=== PATIENT | female | born 1975 | race Caucasian/White ===

== ENCOUNTER 2022-01-20 08:00 | Outpatient (CLI) | payer BC, SELFPAY ==
[2022-01-20 18:59] LABS: Basophils Absolute Auto 0.1 K/mm3 (0.0-0.1); Basophils Percent Auto 1.3 % (0.2-1.2); Eosinophils Absolute Auto 0.1 K/mm3 (0-0.3); Eosinophils Percent Auto 2.4 % (0-4.4); Hematocrit 39.5 % (37.0-47.0); Hemoglobin 12.5 g/dL (12.0-15.0); Mean Corpuscular HGB Conc 31.6 g/dl (32-36); Mean Corpuscular Hemoglobin 31.1 pg (26-34); Mean Corpuscular Volume 98.3 fl (80-100); Mean Platelet Volume 11.8 fl (7.4-10.4); Monocytes Absolute Auto 0.3 K/mm3 (0.1-0.6); Monocytes Percent Auto 6.2 % (2.6-8.5); Neutrophils Absolute Auto 3.1 K/mm3 (1.3-6.7); Neutrophils Percent Auto 57.1 % (45.5-73.1); Platelet Count Result 201 k/mm3 (150-375); Red Blood Count 4.02 M/mm3 (4.2-5.4); Red Cell Distribution Width 12.2 % (11.5-14.5); White Blood Count 5.5 K/mm3 (4.5-10.0)
[2022-01-20 19:01] LABS: Hemoglobin A1C 5.3 % (<5.7)
[2022-01-20 19:14] LABS: Alanine Aminotransferase 22 U/L (6-35); Albumin Level 4.4 g/dL (3.5-5.1); Alkaline Phosphatase 55 U/L (38-126); Anion Gap 11 mmol/L (8-16); Aspartate Amino Transferase 24 U/L (14-36); Bilirubin,Total 1.1 mg/dL (0.2-1.3); Blood Urea Nitrogen 16 mg/dL (7-17); Calcium 8.9 mg/dL (8.4-10.2); Carbon Dioxide 26 mmol/L (22-30); Chloride 102 mmol/L (98-107); Cholesterol 173 mg/dL (0-200); Estimated Glomerular Filt Rate > 60; Glucose 88 mg/dL (65-110); HDL Direct 55 mg/dL; Potassium 4.2 mmol/L (3.4-5.0); Sodium 139 mmol/L (137-145); Triglycerides 51 mg/dL (<150)
[2022-01-20 19:18] LABS: Free T4 Free Thyroxine 1.05 ng/mL (0.78-2.19); Vitamin D 25 Hydroxy 26.1 ng/mL
[2022-01-20 19:25] LABS: LDL Cholesterol Direct 89 mg/dL
== END 2022-01-20 08:01 | disposition home or self-care (01) ==
PROVIDERS: PCP Family Medicine; Visit Provider Family Medicine
DX: R53.83 Other fatigue (principal); E55.9 Vitamin D deficiency, unspecified; Z13.220 Encounter for screening for lipoid disorders; R73.9 Hyperglycemia, unspecified
CPT/HCPCS: 36415; 80053; 80061; 82306; 83036; 84439; 84443; 85025

== ENCOUNTER → 2022-05-06 13:09 | Outpatient (CLI) | payer BC, SELFPAY ==
--- NOTE | ~2022-05-06 | XR_ITS ---
EXAM: XR cervical spine 4-5V DATE: 05/06/2022 13:23 HISTORY: Chronic neck pain . COMPARISON: None available. FINDINGS: Craniocervical association and atlantoaxial joint are aligned. No prevertebral soft tissue swelling. Vertebral bodies are aligned. Vertebral body heights are maintained. Normal disc spaces. N ormal facets and posterior elements. IMPRESSION: Normal cervical spine radiograph findings. Reviewed, dictated and finalized at location K. K PINNER
== END ==
PROVIDERS: PCP Family Medicine; Visit Provider Chiropractor
DX: M54.2 Cervicalgia (principal)
CPT/HCPCS: 72050

== ENCOUNTER → 2022-09-17 15:23 | Outpatient (CLI) | payer BC, SELFPAY ==
--- NOTE | ~2022-09-17 | XR_ITS ---
EXAM: XR ankle LT min 3V DATE: 09/17/2022 15:40 HISTORY: Lateral Lt ankle pain with dorsiflexion; no injury . COMPARISON: None available. FINDINGS: Normal mineralization. No fracture or dislocation. Bone island in the talus. No suspicious lytic or blastic lesion. Joint spaces are maintained. No erosion or periosteal change. Soft tissues within normal limits. IMPRESSION: Unremarkable left ankle radiograph findings. Reviewed, dictated and finalized at location K.
--- NOTE | ~2022-09-17 | XR_ITS ---
EXAM: XR hip RT min 2V DATE: 09/17/2022 15:41 HISTORY: chronic Pain in right hip . COMPARISON: None available. FINDINGS: Normal mineralization. No fracture or dislocation. No lytic or blastic lesion. Mild degene rative change in the right SI joint and pubic symphysis. Right hip is normal. No erosion or periostea l change. Soft tissues within normal limits. 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 Mild osteitis pubis. Reviewed, dictated and finalized at location K.
== END ==
PROVIDERS: PCP Family Medicine; Visit Provider Family Medicine
DX: M25.572 Pain in left ankle and joints of left foot (principal); G89.29 Other chronic pain; M16.11 Unilateral primary osteoarthritis, right hip
CPT/HCPCS: 73502; 73610

== ENCOUNTER → 2022-09-18 15:27 | Outpatient (CLI) | payer BC, SELFPAY ==
--- NOTE | ~2022-09-18 | MM_ITS ---
EXAMINATION: MM screening bushra BI w martha HISTORY: Screening mammogram TECHNIQUE: Craniocaudal and mediolateral oblique 3-D tomosynthesis images were obtained and synthetic 2-D images were generated. CAD analysis was submitted and interpreted. COMPARISON: No prior mammogram is available for comparison at this institution. BREAST PARENCHYMAL COMPOSITION:The breasts are heterogeneously dense, which may obscure small masses. FINDINGS: No suspicious mass, calcification, or architectural distortion are identified in either lola ast to suggest malignancy. IMPRESSION: No mammographic evidence of malignancy. Recommend routine screening mammography in one year. BI-RADS Category 1: Negative Reviewed, dictated and finalized at location .
== END ==
PROVIDERS: PCP Obstetrics & Gynecology; Visit Provider Obstetrics & Gynecology
DX: Z12.31 Encounter for screening mammogram for malignant neoplasm of breast (principal)
CPT/HCPCS: 77063; 77067

== ENCOUNTER 2023-01-31 07:52 | Outpatient (CLI) | payer BC, SELFPAY ==
[2023-01-31 08:14] LABS: Basophils Absolute Auto 0.1 K/mm3 (0.0-0.1); Basophils Percent Auto 1.4 % (0.2-1.2); Eosinophils Absolute Auto 0.1 K/mm3 (0-0.3); Eosinophils Percent Auto 1.2 % (0-4.4); Hematocrit 41.2 % (37.0-47.0); Hemoglobin 13.4 g/dL (12.0-15.0); Immature Granulocyte Absolute 0.01 K/mm3 (0.00-0.031); Immature Granulocyte Percent A 0.2 % (0-0.5); Lymphocytes Percent Auto 23.6 % (18.3-44.2); Mean Corpuscular HGB Conc 32.5 g/dl (32-36); Mean Corpuscular Hemoglobin 30.9 pg (26-34); Mean Corpuscular Volume 94.9 fl (80-100); Mean Platelet Volume 10.2 fl (7.4-10.4); Monocytes Absolute Auto 0.3 K/mm3 (0.1-0.6); Monocytes Percent Auto 6.3 % (2.6-8.5); Neutrophils Absolute Auto 3.4 K/mm3 (1.3-6.7); Neutrophils Percent Auto 67.3 % (45.5-73.1); Platelet Count Result 251 k/mm3 (150-375); Red Blood Count 4.34 M/mm3 (4.2-5.4); Red Cell Distribution Width 11.9 % (11.5-14.5); White Blood Count 5.1 K/mm3 (4.5-10.0)
[2023-01-31 08:25] LABS: Alanine Aminotransferase 16 U/L (6-35); Albumin Level 4.7 g/dL (3.5-5.1); Alkaline Phosphatase 71 U/L (38-126); Anion Gap 11 mmol/L (8-16); Aspartate Amino Transferase 22 U/L (14-36); Bilirubin,Total 1.2 mg/dL (0.2-1.3); Blood Urea Nitrogen 16 mg/dL (7-17); Calcium 9.4 mg/dL (8.4-10.2); Carbon Dioxide 28 mmol/L (22-30); Chloride 102 mmol/L (98-107); Cholesterol 216 mg/dL (0-200); Estimated Glomerular Filt Rate > 60; Glucose 88 mg/dL (65-110); HDL Direct 66 mg/dL; Potassium 4.1 mmol/L (3.4-5.0); Sodium 141 mmol/L (137-145); Triglycerides 84 mg/dL (<150)
[2023-01-31 08:36] LABS: LDL Cholesterol Direct 108 mg/dL
[2023-01-31 08:57] LABS: Free T4 Free Thyroxine 1.32 ng/mL (0.78-2.19); Vitamin D 25 Hydroxy 37.6 ng/mL
[2023-02-03 20:29] LABS: FSH 24.5 mIU/mL (***); LH 17.1 mIU/mL (***)
[2023-02-05 11:56] LABS: Estrogen 71 pg/mL
== END 2023-01-31 07:53 | disposition home or self-care (01) ==
PROVIDERS: PCP Obstetrics & Gynecology; Visit Provider Family Medicine
DX: R53.83 Other fatigue (principal); E55.9 Vitamin D deficiency, unspecified; N95.1 Menopausal and female climacteric states; Z13.220 Encounter for screening for lipoid disorders
CPT/HCPCS: 36415; 80053; 80061; 82306; 82672; 83001; 83002; 84439; 84443; 85025

== ENCOUNTER 2023-06-26 07:10 | Emergency (ER) | payer BC, SELFPAY ==
[2023-06-26 08:51] VITALS: O2SAT 100
[2023-06-26 09:00] VITALS: BP 101/69; PULSE 74; RESP 20
[2023-06-26 09:01] VITALS: PULSE 71; RESP 12; O2SAT 100
[2023-06-26 09:02] LABS: Appearance Urine Clear (Clear); Bacteria Urine 1+ /hpf; Bilirubin Urine Negative (Negative); Blood Urine Negative (Negative); Color Urine Dark Yellow (Yellow); Glucose Urine UA Negative (Negative); Ketones Urine Trace mg/dL (Negative); Leukocyte Esterase Ur Negative LEU/UL (Negative); Need Manual Microscopic Reviewed; Nitrate Urine Negative (Negative); Protein Urine Trace mg/dL (Negative); Specific Grav Ur 1.024 (1.001-1.035); Squamous Epithelial Cell Urine Few /hpf (Few); WBC Urine 0-5 /hpf (0-3); pH Urine 5.5 (5.0-9.0)
[2023-06-26 09:04] LABS: Add Urine Microscopic? YES
--- NOTE | 2023-06-26 09:10 | ED.BACK ---
HPI - Back Pain/Injury General Chief Complaint: Back Pain/Injury Stated Complaint: back pain Time Seen by Provider: 06/26/23 08:59 Source: patient Mode of arrival: ambulatory Limitations: no limitations History of Present Illness HPI Narrative: Janel is a 47-year-old female patient presenting to the clinic today with complaints of left-sided low back pain. She reports the pain is worse upon movement. Rates her pain currently a 5/10. Denies any urinary symptoms. States that the back pain started last night. No known injury. Reports that when she bent forward the pain was very sharp and caused her to feel nauseous and dizzy. Pain does not radiate. No history of kidney stones in the past. Denies any saddle anesthesia or loss of bowel or bladder. Related Data Allergies Allergy/AdvReac Type Severity Reaction Status Date / Time Sulfa (Sulfonamide Allergy Mild rash Verified 06/26/23 08:32 Antibiotics) Review of Systems Review of Systems: Pertinent positives per HPI. Patient denies any fever, chills, rash, headache, visual changes, dizziness, cough, runny nose, sore throat, shortness of breath, chest pain, palpitations, nausea, vomiting, diarrhea, constipation, abdominal pain, or any urinary issues. [facility] Past Medical History Medical History Miscarriage Surgical History Surgical History H/O tubal ligation 2007 History of dilatation and curettage History of wisdom tooth extraction Family History Family History Grandparent Cancer Alcohol abuse Hypertension Heart disease Cerebrovascular accident Depression Mother Cancer Son Depression Other Diabetes mellitus Social History Social History Smoking status: Never smoker Second hand tobacco smoke exposure: No Alcohol intake: never Substance use: never Substance use type: does not use Lack of Transportation: No Lack of Food: Never True Current Housing: I Have Housing Concerned About Future Housing: No Difficulty Paying Gas/Electric Bills: No Difficulty Paying for Meds: No Currently Unemployed: No Education: Bachelor's Degree Difficulty w/ Childcare or Family Care: No Living arrangements: with family Occupation/Education: occupation Spiritual care concerns: No Comments At the time of my signature, I reviewed and agree with the nursing past medical, surgical, social, and family history. There is no relevant family history pertinent to the patient complaint. Exam Narrative: General: Well-developed, well nourished, in no apparent distress Head: Normocephalic, atraumatic. Cardio: Regular rate and rhythm, s1 and s2 normal, no murmur appreciated. Resp: Clear to auscultation bilaterally, no rhonchi, rales, wheezing or rubs. Musculoskeletal: No deformity,tender to palpation over the mid lower and left lower back/paraspinous musculature, pain to the left lower back with flexion of the spine, grossly normal range of motion, patellar reflexes 2+, negative foot drop, muscle strength strong and equal, peripheral pulse strong, no edema, no cyanosis, normal gait and station Course Course Emergency Course: Portions of this record may have been created with voice recognition software. Vital Signs Vital signs: Vital Signs Pulse Oximetry 100 06/26/23 08:51 Pulse Rate 76 06/26/23 09:16 Respiratory Rate 18 06/26/23 09:16 Blood Pressure 114/79 06/26/23 09:15 Pulse Oximetry 100 06/26/23 09:01 Vital signs reviewed MDM - Back Pain/Injury MDM Narrative Medical decision making narrative: At the time of visit patient is resting comfortably on the exam table. Patient appears to be nontoxic. Labs: UA shows trace of ketones, 6-10 red blood cells and 1+ bact
[2023-06-26 09:15] VITALS: BP 114/79; PULSE 74; RESP 13
[2023-06-26 09:16] VITALS: PULSE 76; RESP 18
[2023-06-26] MEDS: KETOROLAC (*BKC) 60 MG/2 ML VIAL IM (09:22)
== END 2023-06-26 09:38 | disposition home or self-care (01) ==
LOC: ANHED 09:27
PROVIDERS: Emergency Medicine; Emergency Provider Nurse Practitioner Family; PCP Family Medicine
DX: S39.012A Strain of muscle, fascia and tendon of lower back, initial encounter (principal)
CPT/HCPCS: 81001; 96372; 99283; J1885

== ENCOUNTER 2023-07-03 11:35 | Outpatient (CLI) | payer BC, SELFPAY ==
--- NOTE | ~2023-07-03 | XR_ITS ---
XR lumbar spine 2-3V DATE: 07/03/2023 11:46 INDICATION: Chronic low back pain with pain and tingling radiating to the lower extremities TECHNIQUE: AP, lateral, coned lateral lumbosacral views COMPARISON: None FINDINGS: Normal alignment of the lumbar spine. No fracture or bone destruction. The included lower t horacic and lumbar pedicles are intact. There is suggestion of mild loss of interspace height at L4-5 and L5-S1. The sacroiliac joints are intact. IMPRESSION: Mild loss of interspace height at L4-5 and L5-S1 Reviewed, dictated and finalized at location A.
== END 2023-07-03 11:36 ==
PROVIDERS: PCP Family Medicine; Visit Provider Clinical Nurse Specialist
DX: M54.50 Low back pain, unspecified (principal); R20.2 Paresthesia of skin
CPT/HCPCS: 72100

== ENCOUNTER 2023-07-10 12:59 | Outpatient (CLI) | payer BC, SELFPAY ==
--- NOTE | ~2023-07-10 | MR_ITS ---
EXAMINATION: MR lumbar spine wo con DATE: 07/10/2023 13:38 INDICATION: Radiculopathy, lumbar region. Low back pain. TECHNIQUE: Magnetic resonance imaging (MRI) of the lumbar spine was performed without intravenous con trast. Sequences included sagittal T2-weighted FSE, sagittal T2-weighted FS FSE, sagittal T1-weighted FSE, and axial T2-weighted FSE. COMPARISON: Lumbar spine radiographs 07/03/23 FINDINGS: Bone alignment is normal. Vertebral body heights are normal. Intervertebral disc heights ar e normal. The distal spinal cord signal intensity is normal. The conus medullaris is at L2. The follo wing disc levels are specifically discussed: L1-L2: The disc does not extend beyond the endplate margin. There is mild bilateral facet joint osteo arthritis. There is no neural foraminal stenosis. There is no central canal stenosis. L2-L3: The disc does not extend beyond the endplate margin. There is mild bilateral facet joint osteo arthritis. There is no neural foraminal stenosis. There is no central canal stenosis. L3-L4: The disc is bulging and has an annular fissure. There is mild bilateral facet joint osteoarthr itis. There is mild bilateral neural foraminal stenosis. There is mild central canal stenosis. L4-L5: The disc is bulging. There is moderate bilateral facet joint osteoarthritis. There is mild dakota ateral neural foraminal stenosis. There is mild central canal stenosis. L5-S1: The disc is bulging and has an annular fissure. There is severe right and moderate left facet joint osteoarthritis. There is mild bilateral neural foraminal stenosis. There is mild central canal stenosis. IMPRESSION: 1. Mild lumbar spondylosis. Reviewed, dictated and finalized at location E. IMPRESSION: 1. Mild lumbar spondylosis.
== END 2023-07-10 13:00 ==
LOC: GOSHIMG 13:00
PROVIDERS: PCP Family Medicine; Visit Provider Clinical Nurse Specialist
DX: M47.26 Other spondylosis with radiculopathy, lumbar region (principal)
CPT/HCPCS: 72148

== ENCOUNTER 2024-02-20 08:18 | Outpatient (CLI) | payer BC, SELFPAY ==
[2024-02-20 08:46] LABS: Basophils Absolute Auto 0.1 K/mm3 (0.0-0.1); Basophils Percent Auto 0.7 % (0.2-1.2); Eosinophils Absolute Auto 0.2 K/mm3 (0-0.3); Hematocrit 37.5 % (37.0-47.0); Hemoglobin 12.3 g/dL (12.0-15.0); Immature Granulocyte Absolute 0.03 K/mm3 (0.00-0.031); Immature Granulocyte Percent A 0.4 % (0-0.5); Lymphocytes Absolute Auto 2.26 K/mm3 (0.9-3.2); Lymphocytes Percent Auto 30.3 % (18.3-44.2); Mean Corpuscular HGB Conc 32.8 g/dl (32-36); Mean Corpuscular Hemoglobin 31.5 pg (26-34); Mean Corpuscular Volume 95.9 fl (80-100); Mean Platelet Volume 10.1 fl (7.4-10.4); Monocytes Absolute Auto 0.5 K/mm3 (0.1-0.6); Neutrophils Absolute Auto 4.5 K/mm3 (1.3-6.7); Neutrophils Percent Auto 60.6 % (45.5-73.1); Platelet Count Result 254 k/mm3 (150-375); Red Blood Count 3.91 M/mm3 (4.2-5.4); Red Cell Distribution Width 12.3 % (11.5-14.5); White Blood Count 7.5 K/mm3 (4.5-10.0)
[2024-02-20 08:55] LABS: Alanine Aminotransferase 38 U/L (6-35); Albumin Level 4.2 g/dL (3.5-5.1); Alkaline Phosphatase 64 U/L (38-126); Anion Gap 3 mmol/L (4-12); Aspartate Amino Transferase 40 U/L (14-36); Bilirubin,Total 0.6 mg/dL (0.2-1.3); Blood Urea Nitrogen 21 mg/dL (7-17); Calcium 9.1 mg/dL (8.4-10.2); Carbon Dioxide 31 mmol/L (22-30); Chloride 104 mmol/L (98-107); Cholesterol 187 mg/dL (0-200); Estimated Glomerular Filt Rate > 60; Glucose 87 mg/dL (65-110); HDL Direct 56 mg/dL; Sodium 138 mmol/L (137-145); Triglycerides 93 mg/dL (<150)
[2024-02-20 09:06] LABS: LDL Cholesterol Direct 84 mg/dL
[2024-02-20 10:01] LABS: Free T4 Free Thyroxine 0.93 ng/mL (0.78-2.19); Vitamin D 25 Hydroxy 27.6 ng/mL
== END 2024-02-20 08:19 | disposition home or self-care (01) ==
LOC: ANHLAB 08:19
PROVIDERS: PCP Family Medicine; Visit Provider Family Medicine
DX: R53.83 Other fatigue (principal); E55.9 Vitamin D deficiency, unspecified; N92.6 Irregular menstruation, unspecified; E78.5 Hyperlipidemia, unspecified
CPT/HCPCS: 36415; 80053; 80061; 82306; 84439; 84443; 85025

== ENCOUNTER 2024-06-11 08:29 | Outpatient (CLI) | payer BC, SELFPAY ==
--- OUTSIDE RECORDS SUMMARY | 2024-06-11 08:32 | XMS_ITS | Encounter Summary ---
Author Organization [facility] Address [address] [place] [address] Care Team Providers Care Gps Navigation Installer Name Role Phone Yvonne Peralta Primary Care Provider Unav Mc Stone MD Unavailable [phone] Encounter Details Date Type Department Care Team (Late st Contact Info) Description 04/20/2020 Edgewaret Message Enc [facility] Medical [address] [address] Yvonne Peralta FNP-BC RE: Follow Up/Update Social History Tobacco Use Types Packs/Day Years Used Date Smoking Tobacco: Never Smokeless Tobacco: Never Alcohol Use Standard Drinks/Week Comments No 0 (1 standard drink = 0.6 oz pur e alcohol) AUDIT-C Answer Date Recorded Frequency of Alcohol Consumption Never 03/22/2019 Average Number of Drinks Not on file 019 Frequency of Binge Drinking Not on file 02/22 Comments Unknown Sex and Gender Information Value Date Recorded Sex Assigned at Not on file Legal Sex Female 7:45 PM CDT Gender Identity Not on file Sexual Orientation Not on file documented as of this encounter Progress Notes * SUDEEP Castro - 04/20/2020 2:29 PM CSTFrom: Janel Rhoades To: Yvonne Peralta Sent: 04/20/2020 12:33 PM STRETCHER LEVELER OPERATOR Subject: Follow Up/Update Regarding the hot tub rash, my neck/back is starting up again now that the steroids are done. Not near as bad but it???s bumpy. The topical never came through. Armandos says it???s something with the insurance. Will you please look into that for me? Thank you! TCHER LEVELER OPERATOR documented in this encounter Plan of Treatment Not on file documented as of this encounter Visit Diagnoses Diagnosis Dermatitis Contact dermatitis and other eczema, due to unspecified cause documented in this encounter Additional Health Concerns Infection Onset Date Last Indicated Resolved Time COVID-19 Rule Out 04/27/2020 04/27/2020 04/28/2020 12:00 PM STRETCHER LEVELER OPERATOR documented as of this encounter Care Teams Gps Navigation Installer Relationship Specialty Start Date End Date Yvonne Peralta FNP-BC PCP - General NURSE PRACTITIONER 03/01/19 Mc Toscano MD [address] [address] Referring Physician OBHOLLYN 03/22/19 documented as of this encounter
--- OUTSIDE RECORDS SUMMARY | 2024-06-11 08:32 | XMS_ITS | Encounter Summary ---
Author Organization [facility] Address [facility] [place] [address] Care Team Providers Care Paste Up Artist Apprentice Name Role Phone Yvonne Peralta [facility] Primary Care Provider Unav ailable Mc Toscano MD Unavailable Encounter Details Date Type Department Care Team (Late st Contact Info) Description 02/18/2023 Provender Message Enc [facility] Medical Group Family Medicine - [place] [address] [place] [address] [facility] Provider Screening Social History Tobacco Use Types Packs/Day Years [...] on file documented as of this encounter Plan of Treatment Not on file documented as of this encounter Visit Diagnoses Not on filedocumented in this encounter Care Teams Paste Up Artist Apprentice Relationship Specialty Start Date End Date Yvonne Peralta FNP-BC PCP - General NURSE PRACTITIONER 03/01/19 Mc Toscano MD [address] [facility] [address] [place] [address] Referring Physician OBJOSE R 03/22/19 documented as of this encounter
--- OUTSIDE RECORDS SUMMARY | 2024-06-11 08:32 | XMS_ITS | Encounter Summary ---
Author Organization [facility] Address [facility] [place] [address] Care Team Providers Care Loom Control Chain Builder Name Role Phone Yvonne Peralta Primary Care Provider Unav Mc Stone MD Unavailable [phone] Encounter Details Date Type Department Care Team (Late st Contact Info) Description 04/10/2020 Mosa Records Message Enc [facility] Medical Group Family Medicine [address] [address] Yvonne Peralta FNP-BC Other Social History Tobacco Use Types Packs/Day Years [...] Diagnoses Not on filedocumented in this encounter Additional Health Concerns Infection Onset Date Last Indicated Resolved Time COVID-19 Rule Out 04/27/2020 04/27/2020 04/28/2020 12:00 PM ADVERTISING LAYOUT WORKER documented as of this encounter Care Teams Loom Control Chain Builder Relationship Specialty Start Date End Date Yvonne Peralta FNP-BC PCP - General NURSE PRACTITIONER 03/01/19 Mc Toscano MD [address] [id number] Referring Physician TG 03/22/19 documented as of this encounter
--- OUTSIDE RECORDS SUMMARY | 2024-06-11 08:32 | XMS_ITS | Clinical Summary ---
Author Organization [facility] Address [address] [place] [address] Care Team Providers Care Code Number Stamper Name Role Phone MaryuriYvonne stewart [facility] Primary Care Provider Unav ailable Mc Toscano MD Unavailable [phone] Allergies Active Allergy Reactions Criticality Noted Date Comments Sulfa Antibiotics Rash,Swelling Medium 03/01/2012 Medications No known medications Active Problems Problem Noted Date Diagnosed Date Hyperlipidemia 01/20/2014 Depression 03/01/2012 Resolved Problems Problem Noted Date Diagnosed Date Resolved Date Hip injury 03/06/2016 03/22/2019 Greater trochanteric bursitis, right 02/29/2016 03/22/2019 Knee pain, right 02/29/2016 03/22/2019 Shoulder pain, right 02/29/2016 019 Diarrhea 01/20/2014 03/22/2019 Menorrhagia 02/28/2013 03/22/2019 Acute otitis media 09/27/2012 9 Sore throat 2012 03/22/2019 Encounter for preventive health examination 03/01/2012 12/02/2019 Immunizations Name Administration Dates Next Due PFIZER COVID-19 (ORIGINAL FO RMULATION, PURPLE CAP) mRNA, LNP-S, PF, 30 MCG/0.3 ML DOSE 06/03/2020 Family History Medical History Relation Comments Depression Father Cancer Mother uterine Cancer Sister cervical Relation Status Comments Father Alive Mother Alive Sister Alive Social History Tobacco Use Types Packs/Day Years [...] on file Sexual Orientation Not on file Last Filed Vital Signs Vital Sign Reading Time Taken Comments Blood Pressure 102/60 03/22/2019 7:54 AM OBIEE OBIA SOLUTION ARCHITECT Pulse 73 03/22/2019 7:54 AM OBIEE OBIA SOLUTION ARCHITECT Temperature 36.9 C (98.4 F) 03/22/2019 7:54 AM OBIEE OBIA SOLUTION ARCHITECT Respiratory Rate - - Oxygen Saturation 95% 03/22/2019 7:54 AM OBIEE OBIA SOLUTION ARCHITECT Inhaled Oxygen Concentration - - Weight 55.3 kg (122 lb) 03/22/2019 7:54 AM OBIEE OBIA SOLUTION ARCHITECT Height 169 cm (5' 6.54 ) 03/22/2019 7:54 AM OBIEE OBIA SOLUTION ARCHITECT Body Mass Index 19.38 03/22/2019 7:54 AM OBIEE OBIA SOLUTION ARCHITECT Plan of Treatment Health Maintenance Due Date Last Done Comments Cervical Cancer Screening Pa p Smear (Age 30 to 64) Every 3 Years 1977 Colorectal Cancer Screening Colonoscopy (10 Years) 1977 PHQ-2 (Physician [place]) 1989 Hepatitis C 09/22/1995 DTaP, Tdap and Td Vaccines ( 1 - Tdap) 1996 Hepatitis B Vaccines (1 of 3 - 19+ 3-dose series) 1996 Cervical Cancer Screening Pa p with HPV Testing (Age 30 to 64) Every 5 Years 09/22/2007 Cervical Cancer Screening with HPV 09/22/2007 Mammogram Screening 2017 Annual Physical 03/22/2020 03/22/2019 COVID-19 Vaccine (2 - 2023-2 5 season) 2023 06/03/2020 Influenza Adult (#1) 2023 PHQ-2 (Physician [place]) 03/23/2024 Meningococcal B Vaccine Aged Out No l onger eligible based on patient's age to complete this topic Meningococcal Vaccine Aged Out No samir francisco eligible based on patient's age to complete this topic Pneumococcal Vaccine: Pediat rics (0 to 5 Years) and At-Risk Patients (6 to 64 Years) Aged Out No longer eligi ble based on patient's age to complete this topic RSV Immunizations Under 20 Months Aged Out No longer eligible based on patient's age to complete this topic Insurance [facility] Care Teams Code Number Stamper Relationship Specialty Start Date End Date Yvonne Peralta FNP- PCP - General NURSE PRACTITIONER 03/01/19 Mc Toscano MD [address] [place] [place] [address] [place] [address] Referring Physician JENNIEN 03/22/19
--- OUTSIDE RECORDS SUMMARY | 2024-06-11 08:32 | XMS_ITS | Encounter Summary ---
Author Organization [facility] Address [address] [place] [address] Care Team Providers Care Baccarat Dealer Name Role Phone [facility] SERVICES Primary Care Provider Unav ailable Mc Toscano MD Unavailable [phone] Encounter Details Date Type Department Care Team (Late st Contact Info) Description 06/06/2020 PlayCrafter Message Enc [facility] Medical [address] [address] Yvonne Peralta FNP-BC RE: Referral Request Social History Tobacco Use Types Packs/Day Years [...] on filedocumented in this encounter Care Teams Baccarat Dealer Relationship Specialty Start Date End Date Yvonne Peralta FNP-BC PCP - General NURSE PRACTITIONER 03/01/19 Mc Toscano MD [address] [address] Referring Physician TG 03/22/19 documented as of this encounter
--- OUTSIDE RECORDS SUMMARY | 2024-06-11 08:32 | XMS_ITS | Encounter Summary ---
Author Organization [facility] Address [address] [place] [address] Care Team Providers Care Sewing Machine Operator Name Role Phone Yvonne Peralta Primary Care Provider UnaMc Ramirez MD Unavailable [phone] Encounter Details Date Type Department Care Team (Late st Contact Info) Description 04/10/2020 Gradwell Message Enc [facility] Medical [facility] Medicine [address] [address] Yvonne Peralta FNP-BC RE: Follow [...] Rule Out 04/27/2020 04/27/2020 04/28/2020 12:00 PM PANELBOARD TANK PUMPER documented as of this encounter Care Teams Sewing Machine Operator Relationship Specialty Start Date End Date Yvonne Peralta FNP-BC PCP - General NURSE PRACTITIONER 03/01/19 Mc Toscano MD [address] [address] Referring Physician TG 03/22/19 documented as of this encounter
[2024-06-11 08:57] LABS: Alanine Aminotransferase 12 U/L (6-35); Albumin Level 4.1 g/dL (3.5-5.1); Alkaline Phosphatase 53 U/L (38-126); Aspartate Amino Transferase 25 U/L (14-36); Bilirubin,Total 0.8 mg/dL (0.2-1.3)
== END 2024-06-11 08:30 | disposition home or self-care (01) ==
LOC: ANHLAB 08:30
PROVIDERS: PCP Family Medicine; Visit Provider Family Medicine
DX: R74.8 Abnormal levels of other serum enzymes (principal)
CPT/HCPCS: 36415; 80076

== ENCOUNTER 2024-10-05 08:59 | Outpatient (CLI) | payer BC, SELFPAY ==
--- NOTE | ~2024-10-05 | MM_ITS ---
EXAMINATION: MM screening bushra BI w martha HISTORY: Screening TECHNIQUE: Craniocaudal and mediolateral oblique 3-D tomosynthesis images were obtained and synthetic 2-D images were generated. CAD analysis was submitted and interpreted. COMPARISON: 09/18/2022 BREAST PARENCHYMAL COMPOSITION: Dense: The breasts are heterogeneously dense, which may obscure small masses FINDINGS: There is no evidence of suspicious mass, calcification, or architectural distortion to sugg est malignancy in either breast. There has been no suspicious interval change. IMPRESSION: 1. No mammographic evidence of malignancy. 2. Recommend routine screening mammography in one year. BI-RADS Category 1: Negative Reviewed, dictated and finalized at location B.
--- OUTSIDE RECORDS SUMMARY | 2024-10-05 09:07 | XMS_ITS | Encounter Summary ---
Author Organization [facility] Address [facility] [place] [address] Care Team Providers Care Ecologist Technician Name Role Phone Yvonne Peralta Primary Care Provider Unav Mc Stone MD Unavailable [phone] Encounter Details Date Type Department Care Team (Late st Contact Info) Description 04/10/2020 GenVault Message Enc [facility] Medical Group Family Medicine [address] [address] Yvonne Peralta FNP-BC Other Social [...] Rule Out 04/27/2020 04/27/2020 04/28/2020 12:00 PM VENUE MANAGER documented as of this encounter Care Teams Ecologist Technician Relationship Specialty Start Date End Date Yvonne Peralta FNP-BC PCP - General NURSE PRACTITIONER 03/01/19 Mc Toscano MD [address] [id number] Referring Physician TG 03/22/19 documented as of this encounter
--- OUTSIDE RECORDS SUMMARY | 2024-10-05 09:08 | XMS_ITS | Encounter Summary ---
Author Organization [facility] Address [address] [place] [address] Care Team Providers Care Warp Dresser Name Role Phone [facility] Primary Care Provider Unav ailable Mc Toscano MD Unavailable [phone] Encounter Details Date Type Department Care Team (Late st Contact Info) Description 06/06/2020 CloudJay Message Enc [facility] Medical [address] [address] Yvonne Peralta FNP-BC RE: Referral [...] on filedocumented in this encounter Care Teams Warp Dresser Relationship Specialty Start Date End Date Yvonne Peralta FNP-BC PCP - General NURSE PRACTITIONER 03/01/19 Mc Toscano MD [address] [address] Referring Physician TG 03/22/19 documented as of this encounter
--- OUTSIDE RECORDS SUMMARY | 2024-10-05 09:08 | XMS_ITS | Encounter Summary ---
Author Organization [facility] Address [address] [place] [address] Care Team Providers Care Assistant Executive Housekeeper Name Role Phone Yvonne Peralta Primary Care Provider Unav Mc Stone MD Unavailable [phone] Encounter Details Date Type Department Care Team (Late st Contact Info) Description 04/20/2020 Dada Roomt Message Enc [facility] Medical [address] [address] Yvonne Peralta FNP-BC RE: Follow [...] To: Yvonne Peralta Sent: 04/20/2020 12:33 PM TRAVEL COUNSELOR Subject: Follow Up/Update Regarding the hot tub rash, my neck/back is starting up again now that the steroids are done. Not near as bad but it???s bumpy. The topical never came through. Armandos says it???s something with the insurance. Will you please look into that for me? Thank you! EL COUNSELOR documented in this encounter Plan of Treatment Not on file documented as of this encounter Visit Diagnoses Diagnosis Dermatitis Contact dermatitis and other eczema, due to unspecified cause documented in this encounter Additional Health Concerns Infection Onset Date Last Indicated Resolved Time COVID-19 Rule Out 04/27/2020 04/27/2020 04/28/2020 12:00 PM TRAVEL COUNSELOR documented as of this encounter Care Teams Assistant Executive Housekeeper Relationship Specialty Start Date End Date Yvonne Peralta FNP-BC PCP - General NURSE PRACTITIONER 03/01/19 Mc Toscano MD [address] [address] Referring Physician OBHOLLYN 03/22/19 documented as of this encounter
--- OUTSIDE RECORDS SUMMARY | 2024-10-05 09:08 | XMS_ITS | Encounter Summary ---
Author Organization [facility] Address [address] [place] [address] Care Team Providers Care Billing And Quality Technician Name Role Phone Yvonne Peralta Primary Care Provider UnaMc Ramirez MD Unavailable [phone] Encounter Details Date Type Department Care Team (Late st Contact Info) Description 04/10/2020 FTBpro Message Enc [facility] Medical [facility] Medicine [address] [address] Yvonne Peralta FNP-BC RE: Follow [...] Rule Out 04/27/2020 04/27/2020 04/28/2020 12:00 PM ASSESSMENT COUNSELOR documented as of this encounter Care Teams Billing And Quality Technician Relationship Specialty Start Date End Date Yvonne Peralta FNP-BC PCP - General NURSE PRACTITIONER 03/01/19 Mc Toscano MD [address] [address] Referring Physician TG 03/22/19 documented as of this encounter
--- OUTSIDE RECORDS SUMMARY | 2024-10-05 09:08 | XMS_ITS | Continuity of Care Document ---
Author Organization [facility], [facility] Address [address] [place] [phone] Phone Care Team Providers Care Spool Hauler Name Role Phone Hilary GIRALDO, Marie Unavailable Unavailable Allergies, Adverse Reactions, Alerts Substance Reaction Status Criticality Sulfa (Sulfonamide Antibiotics) Unknown Active No Information Medications Medication Instructions Dosage Effective Dates (start - stop) Status Comments NUVARING (unknown strength) Not Available - Active MULTIVITAMINS (unknown strength) Not Available - Active Advance Directives Directive Yes / No Effective Date File Name No Information Encounters Encounter Description Practice Location Reason(s) For Visit Diagnoses Date Provider Providers Copied on Encounter [facility], [facility], [address] [place] [address], [id number], tel:[phone] [facility] No Information Hilary Salazar. [address] [place] [address], [id number], . tel:[phone] Family History Family Member Type Diagnosis Age At Onset Mother Problem (finding) Arthritis Problem (finding) No family history of Re spiratory disease Problem (finding) No family history of Di abetes mellitus Problem (finding) No family history of Ca taracts Problem (finding) No family history of [place] Brother Problem (finding) asthma Problem (finding) No family history of [place] Payers Payer name Insurance type Covered alliance party ID Authoriza tion(s) No Information Social History Type Description Quantity Date Captured Comments Alcohol Use Details Unknown Caffeine Use Details Unknown Tobacco Use Status No Information Smoking Status No Information Sex Female Chief Complaint And Reason For Visit No Information Reason For Referral Reason For Referral No Information History Of Present Illness Encounter Date Complaint History Of Prese nt Illness No Information Functional Status Date Functional Assessmen t No Information Instructions Date Instruction Additional Infor mation No Information Assessments Type Assessment Date No Information Patient Care Teams Name Effective Dates (start - stop) Status Members No Information
--- OUTSIDE RECORDS SUMMARY | 2024-10-05 09:08 | XMS_ITS | Clinical Summary ---
Author Organization [facility] Address [address] [place] [address] Care Team Providers Care Home Builder Name Role Phone MaryuriYvonne stewart [facility] Primary Care Provider Unav ailable Mc Toscano MD Unavailable [phone] Allergies Active Allergy Reactions Criticality Noted Date [...] for preventive health examination 03/01/2012 12/02/2019 Immunizations Immunization Administration Dates Next Due PFIZER COVID-19 (ORIGINAL [...] Comments Blood Pressure 102/60 03/22/2019 7:54 AM COMBINATION OPERATOR Pulse 73 03/22/2019 7:54 AM COMBINATION OPERATOR Temperature 36.9 C (98.4 F) 03/22/2019 7:54 AM COMBINATION OPERATOR Respiratory Rate - - Oxygen Saturation 95% 03/22/2019 7:54 AM COMBINATION OPERATOR Inhaled Oxygen Concentration - - Weight 55.3 kg (122 lb) 03/22/2019 7:54 AM COMBINATION OPERATOR Height 169 cm (5' 6.54) 03/22/2019 7:54 AM COMBINATION OPERATOR Body Mass Index 19.38 03/22/2019 7:54 AM COMBINATION OPERATOR Plan of Treatment Health Maintenance Due Date Last Done Comments Cervical Cancer Screening Pa p Smear (Age 30 to 64) Every 3 Years 1977 Colorectal Cancer Screening Colonoscopy (10 Years) 1977 Hepatitis C 09/22/1995 DTaP, Tdap and Td Vaccines ( 1 - Tdap) 1996 Hepatitis B Vaccines (1 of 3 - 19+ 3-dose series) 1996 Cervical Cancer Screening Pa p with HPV Testing (Age 30 to 64) Every 5 Years 09/22/2007 Cervical Cancer Screening with HPV 09/22/2007 Mammogram Screening 2017 Annual Physical 03/22/2020 03/22/2019 COVID-19 Vaccine (2 - 2023-2 5 season) 2023 06/03/2020 PHQ-2 (Physician Tangirnaq) 03/23/2024 Meningococcal B Vaccine Aged Out No l onger eligible based on patient's age to complete this topic Meningococcal Vaccine Aged Out No samir francisco eligible based on patient's age to complete this topic Pneumococcal Vaccine: Pediat rics (0 to 5 Years) and At-Risk Patients (6 to 49 Years) Aged Out No longer eligi ble based on patient's age to complete this topic RSV Immunizations Under 20 Months Aged Out No longer eligible based on patient's age to complete [place] [id number] [facility] Care Teams Home Builder Relationship Specialty Start Date End Date Yvonne Peralta FNP- PCP - General NURSE PRACTITIONER 03/01/19 Mc Toscano MD [address] [id number] [place], [place] [id number] Referring Physician JENNIEN 03/22/19
--- OUTSIDE RECORDS SUMMARY | 2024-10-05 09:08 | XMS_ITS | Encounter Summary ---
Author Organization [facility] Address [facility] [place] [address] Care Team Providers Care Attic Fans Mechanic Name Role Phone Yvonne Peralta [facility] Primary Care Provider Unav ailable Mc Toscano MD Unavailable Encounter Details Date Type Department Care Team (Late st Contact Info) Description 02/18/2023 Gritness Message Enc [facility] - [place] [address] [place] [address] [facility] Provider Screening Social History Tobacco Use [...] on filedocumented in this encounter Care Teams Attic Fans Mechanic Relationship Specialty Start Date End Date Yvonne Peralta FNP-BC PCP - General NURSE PRACTITIONER 03/01/19 Mc Toscano MD [address] [facility] [address] [place] [id number] Referring Physician OBJOSE R 03/22/19 documented as of this encounter
== END 2024-10-05 09:00 | disposition home or self-care (01) ==
PROVIDERS: PCP Family Medicine; Visit Provider Nurse Practitioner Family
DX: Z12.31 Encounter for screening mammogram for malignant neoplasm of breast (principal)
CPT/HCPCS: 77063; 77067